=== PATIENT | female | born 1990 | race Caucasian/White ===

== ENCOUNTER 2019-10-15 16:00 | Emergency (ER) | payer OTHER ==
[~2019-10-15] VITALS: Ht 162.6 cm; Wt 75.0 kg
[2019-10-15 16:13] VITALS: BP 145/85
[2019-10-15] MEDS ORDERED: ondansetron 4mg rapidly disintigrating tab PO ONE (16:55)
[2019-10-15] MEDS ORDERED: HYDROcodone/acetaminophen 5mg/325mg tablet PO ONE (16:55)
[2019-10-15] MEDS ORDERED: ibuprofen tablet 400 MG TABLET PO ONE (17:35)
[2019-10-15] MEDS ORDERED: ibuprofen 200mg tablet PO ONE (17:45)
== END 2019-10-15 17:39 | disposition home or self-care (01) ==
LOC: ER 16:01
DX: M79.671 Pain in right foot (principal); Z79.2 Long term (current) use of antibiotics; Z88.8 Allergy status to other drugs, medicaments and biological substances
CPT/HCPCS: 73630; 99283